=== PATIENT | female | born 2000 | race Caucasian/White ===

== ENCOUNTER 2020-03-24 18:23 | Observation (INO) | payer OTHER ==
[2020-03-24 19:01] LABS: AMORPHOUS SEDIMENT,URINE TRACE /HPF; APPEARANCE,URINE SLIGHTLY-CLOUDY; BILIRUBIN,URINE NEGATIVE (NEGATIVE); COLOR,URINE YELLOW; GLUCOSE, URINE NEGATIVE (NEGATIVE); KETONES,URINE NEGATIVE (NEGATIVE); LEUKOCYTE ESTERASE,URINE NEGATIVE (NEGATIVE); NITRITE,URINE NEGATIVE (NEGATIVE); PROTEIN,URINE NEGATIVE (NEGATIVE); URINE SPECIFIC GRAVITY 1.013; UROBILINOGEN,URINE NEGATIVE mg/dL (<2.0)
[2020-03-24 19:17] LABS: URINE AMPHETAMINES SCREEN NEGATIVE; URINE BARBITURATES SCREEN NEGATIVE; URINE BENZODIAZEPINES SCREEN NEGATIVE; URINE COCAINE SCREEN NEGATIVE; URINE MARIJUANA (THC) SCREEN NEGATIVE; URINE METHADONE SCREEN NEGATIVE; URINE PHENCYCLIDINE SCREEN NEGATIVE
[2020-03-24] MEDS ORDERED: CEFTRIAXONE INJ 1000 MG VIAL IV ONE (19:25)
[2020-03-24] MEDS ORDERED: ACETAMINOPHEN 325 MG TABLET ONE (19:35)
[2020-03-24] MEDS ORDERED: CEFTRIAXONE 1 GM/D5W RTU 1 GM/50 ML RTUPB IV ONE ×2 (19:36→20:00)
[2020-03-24] MEDS ORDERED: ACETAMINOPHEN 325 MG TABLET PO ONE (20:00)
[2020-03-24] MEDS ORDERED: RINGERS SOLUTION,LACTATED 1,000 ML IV ONE (20:00)
[2020-03-24] MEDS ORDERED: PROMETHAZINE HCL INJ 25 MG/1 ML VIAL ONE (21:32)
[2020-03-24 22:00] LABS: ABSOLUTE EOSINOPHILS # (AUTO) 0.3 10^3/uL (0.0-0.6); ABSOLUTE LYMPHOCYTES (AUTO) 2.6 10^3/uL (0.5-4.7); ABSOLUTE NEUT (AUTO) 11.7 10^3/uL (1.7-8.2); BASOPHILS % (AUTO) 0.1 % (0-2); EOSINOPHILS % (AUTO) 1.6 % (0-6); HEMATOCRIT 30.5 % (36.0-47.0); HEMOGLOBIN 10.7 g/dL (12.0-15.5); LYMPHOCYTES % (AUTO) 16.6 % (13-45); MEAN CORPUSCULAR HEMOGLOBIN 30.2 pg (27.0-33.4); MEAN CORPUSCULAR HGB CONC 34.9 g/dL (32.0-36.0); MEAN CORPUSCULAR VOLUME 86 fl (80-97); MONOCYTES % (AUTO) 6.5 % (3-13); PLATELET COUNT 213 10^3/uL (150-450); RED BLOOD COUNT 3.54 10^6/uL (3.72-5.28); RED CELL DISTRIBUTION WIDTH 13.3 % (11.5-14.0); SEGMENTED NEUTROPHILS % (AUTO) 75.2 % (42-78); TOTAL CELLS COUNTED % (AUTO) 100 %; WHITE BLOOD COUNT 15.6 10^3/uL (4.0-10.5)
[2020-03-24] MEDS ORDERED: PROMETHAZINE HCL INJ 25 MG/1 ML VIAL IV ONE (22:00)
--- NOTE | 2020-03-24 22:36 | Admission Physical ---
Datetime Report Generated by CPN: 03/24/2020 22:36 CURRENT ADMISSION Chief Complaint: Other Chief Complaint Other: Pyelonephritis Indication for Induction: Not Applicable Admit Impression : Obstetrical Complication; Medical Complication Admit Plan: Admit to Unit; Observation/Evaluation ALLERGIES Medication Allergies: No Known Allergies (03/24/2020) OBSTETRICAL HISTORY EDC: 07/20/2020 00:00 : 1 Para: 0 PHYSICAL EXAM General: Normal HEENT: Normal Neurologic: Normal Thyroid: Normal Heart: Normal Lungs: Normal Breast: Deferred Back: Abnormal Abdomen: Normal Genitourinary Exam: Normal Extremities: Normal DTRs: Normal Pelvic Type: Adequate Physical Exam Comments: right cva tenderness MEMBRANES Pooling: Negative Membranes: Intact FETUS A EGA: 23.1 FHR- Baseline: 140 Admit Comment: Will admit for iv antibiotics and fluids. INFORMED CONSENT Signature: with User ID: [email or web address]
[2020-03-24] MEDS ORDERED: ONDANSETRON 4 MG TAB.RAPDIS ONE (23:08)
[2020-03-24] MEDS: RINGERS SOLUTION,LACTATED 1,000 ML IV PRN (23:09)
[2020-03-24] MEDS: ONDANSETRON 4 MG TAB.RAPDIS PO PRN (23:09)
[2020-03-25] MEDS: PROMETHAZINE HCL INJ 25 MG/1 ML VIAL IV PRN ×2 (04:05→17:25)
[2020-03-25] MEDS: ACETAMINOPHEN 325 MG TABLET PO PRN ×3 (04:12→17:21)
[2020-03-25] MEDS: RINGERS SOLUTION,LACTATED 1,000 ML IV PRN ×3 (05:36→23:04)
[2020-03-25] MEDS: CEFAZOLIN 1 GM/D5W RTU 1 GM/50 ML RTUPB IV SCH ×3 (05:37→23:03)
[2020-03-25] MEDS: ONDANSETRON 4 MG TAB.RAPDIS PO PRN (09:22)
--- NOTE | 2020-03-25 10:26 | PDOC PROGRESS REPORT ---
Subjective Date:: 03/25/20 Subjective:: Doing well. No fever/chills. Still with right back palin in flank area. Has warm heat pack in place now which is helping the pain. No N/v or shortness of breath. She reports good FM Reason For Visit: , PYELONEPHRITIS Physical Exam - Physical Exam Vital Signs: Temp Pulse Resp BP Pulse Ox 99.0 F 94 16 121/68 100 03/25/20 08:09 03/25/20 08:09 03/25/20 08:09 03/25/20 08:09 03/25/20 08:09 Intake & Output 03/24/20 03/25/20 03/26/20 06:59 06:59 06:59 Intake Total 856 Balance 856 Weight 94 kg General appearance: PRESENT: no acute distress, cooperative Mouth exam: PRESENT: moist Respiratory exam: PRESENT: clear to auscultation lazaro, unlabored Cardiovascular exam: PRESENT: RRR, +S1, +S2 Vascular exam: PRESENT: normal capillary refill GI/Abdominal exam: PRESENT: normal bowel sounds - Right CVA tenderness, soft Extremities exam: PRESENT: full ROM. ABSENT: calf tenderness, clubbing, pedal edema Psychiatric exam: PRESENT: appropriate affect, normal mood. ABSENT: homicidal ideation, suicidal ideation Skin exam: PRESENT: dry, intact, warm. ABSENT: cyanosis, rash Result Laboratory Results: 03/24/20 21:41 03/24/20 03/24/20 18:30 21:41 WBC 15.6 H RBC 3.54 L Hgb 10.7 L Hct 30.5 L MCV 86 MCH 30.2 MCHC 34.9 RDW 13.3 Plt Count 213 Seg Neutrophils % 75.2 Urine Color YELLOW Urine Appearance SLIGHTLY-CLOUDY Urine pH 6.0 Ur Specific [place] 1.013 Urine Protein NEGATIVE Urine Glucose (UA) NEGATIVE Urine Ketones NEGATIVE Urine Blood LARGE H Urine Nitrite NEGATIVE Ur Leukocyte Esterase NEGATIVE Urine RBC (Auto) >182 Assessment & Plan - Diagnosis (1) Pyelonephritis Is this a current diagnosis for this admission?: Yes - Time Time Spent with patient: Less than 15 minutes Medications reviewed and adjusted accordingly: Yes Anticipated discharge: Home Anticipated DC Timeframe: within 48 hours Disposition: Stable but still CVA tenderness on right during assessment. - Plan Summary Plan Summary: 19 yo G1 at 23 weeks EGA with right pyelonephritis -VSS, afebrile -Regular diet, tolerating well -Exam positive for Right CVA tenderness -CBC on admit with WBC 15.6, CBC ordered for am -UC with no growth after 24 hours -FHT daily. Reassuring today -Continue IV antibiotics and IV hydration -WIll continue current therapy until no CVA tenderness, no fevers and UC returns. D/c with patient. All questions answered
[2020-03-26 06:03] VITALS: BP 100/65
[2020-03-26] MEDS: CEFAZOLIN 1 GM/D5W RTU 1 GM/50 ML RTUPB IV SCH (06:23)
[2020-03-26 07:41] LABS: HEMATOCRIT 28.2 % (36.0-47.0); HEMOGLOBIN 9.7 g/dL (12.0-15.5); MEAN CORPUSCULAR HEMOGLOBIN 30.1 pg (27.0-33.4); MEAN CORPUSCULAR HGB CONC 34.4 g/dL (32.0-36.0); MEAN CORPUSCULAR VOLUME 87 fl (80-97); PLATELET COUNT 150 10^3/uL (150-450); RED BLOOD COUNT 3.24 10^6/uL (3.72-5.28); RED CELL DISTRIBUTION WIDTH 13.4 % (11.5-14.0); WHITE BLOOD COUNT 8.5 10^3/uL (4.0-10.5)
[2020-03-26] MEDS: RINGERS SOLUTION,LACTATED 1,000 ML IV PRN (09:03)
--- NOTE | 2020-04-05 12:13 | PDOC DISCHARGE SUMMARY ---
Impression - Admit/DC Date/PCP Admission Date/Primary Care Provider: 03/24/20 22:44 Discharge Date: 03/26/20 - Discharge Diagnosis (1) Pyelonephritis Is this a current diagnosis for this admission?: Yes (2) Is this a current diagnosis for this admission?: Yes - Assessment Summary: has had > 48 hours of antibiotics with good resolution of pyelo symptoms. No nausea or vomiting since yesterday. Now tolerating a regular diet and not requiring pain medication. Fever resolved and pain resolved - Additional Information Resuscitation Status: Full Code Referrals: [facility] [Provider Group] (Follow up with A as needed.) Prescriptions: Cephalexin Monohydrate [Keflex 500 mg Capsule] 500 mg PO QID #20 capsule Home Medications: No122/Iron/Folic Acid [ Multi Tablet] 1 tab PO DAILY 03/24/20 Cephalexin Monohydrate [Keflex 500 mg Capsule] 500 mg PO QID #20 capsule 03/26/20 History of Present Illiness History of Present Illness: XIN LEMOS is a 19 year old female Physical Exam - Physical Exam Vital Signs: Temp Pulse Resp BP Pulse Ox 97.5 F 93 18 100/65 98 03/26/20 04:00 03/26/20 04:00 03/26/20 04:00 03/26/20 04:00 03/26/20 04:00 Intake & Output 03/25/20 03/26/20 03/27/20 06:59 06:59 06:59 Intake Total 856 3590 1000 Balance 856 3590 1000 Weight 94 kg 91.1 kg Results Laboratory Results: WBC 8.5 10^3/uL (4.0-10.5) 03/26/20 07:28 RBC 3.24 10^6/uL (3.72-5.28) L 03/26/20 07:28 Hgb 9.7 g/dL (12.0-15.5) L 03/26/20 07:28 Hct 28.2 % (36.0-47.0) L 03/26/20 07:28 MCV 87 fl (80-97) 03/26/20 07:28 MCH 30.1 pg (27.0-33.4) 03/26/20 07:28 MCHC 34.4 g/dL (32.0-36.0) 03/26/20 07:28 RDW 13.4 % (11.5-14.0) 03/26/20 07:28 Plt Count 150 10^3/uL (150-450) 03/26/20 07:28 Lymph % (Auto) 16.6 % (13-45) 03/24/20 21:41 [place] % (Auto) 6.5 % (3-13) 03/24/20 21:41 Eos % (Auto) 1.6 % (0-6) 03/24/20 21:41 Baso % (Auto) 0.1 % (0-2) 03/24/20 21:41 Absolute Neuts (auto) 11.7 10^3/uL (1.7-8.2) H 03/24/20 21:41 Absolute Lymphs (auto) 2.6 10^3/uL (0.5-4.7) 03/24/20 21:41 Absolute Monos (auto) 1.0 10^3/uL (0.1-1.4) 03/24/20 21:41 Absolute Eos (auto) 0.3 10^3/uL (0.0-0.6) 03/24/20 21:41 Absolute Basos (auto) 0.0 10^3/uL (0.0-0.2) 03/24/20 21:41 Seg Neutrophils % 75.2 % (42-78) 03/24/20 21:41 Urine Color YELLOW 03/24/20 18:30 Urine Appearance SLIGHTLY-CLOUDY 03/24/20 18:30 Urine pH 6.0 (5.0-9.0) 03/24/20 18:30 Ur Specific [place] 1.013 03/24/20 18:30 Urine Protein NEGATIVE mg/dL (NEGATIVE) 03/24/20 18:30 Urine Glucose (UA) NEGATIVE mg/dL (NEGATIVE) 03/24/20 18:30 Urine Ketones NEGATIVE mg/dL (NEGATIVE) 03/24/20 18:30 Urine Blood LARGE (NEGATIVE) H 03/24/20 18:30 Urine Nitrite NEGATIVE (NEGATIVE) 03/24/20 18:30 Urine Bilirubin NEGATIVE (NEGATIVE) 03/24/20 18:30 Urine Urobilinogen NEGATIVE mg/dL (<2.0) 03/24/20 18:30 Ur Leukocyte Esterase NEGATIVE (NEGATIVE) 03/24/20 18:30 Urine RBC (Auto) >182 /HPF 03/24/20 18:30 Urine Bacteria (Auto) 3+ /HPF 03/24/20 18:30 Squamous Epi Cells Auto 2 /HPF 03/24/20 18:30 Amorphous Sediment Auto TRACE /HPF 03/24/20 18:30 Urine Mucus (Auto) RARE /LPF 03/24/20 18:30 Urine Ascorbic Acid NEGATIVE (NEGATIVE) 03/24/20 18:30 Urine Opiates Screen NEGATIVE 03/24/20 18:30 Urine Methadone Screen NEGATIVE 03/24/20 18:30 Ur Barbiturates Screen NEGATIVE 03/24/20 18:30 Ur Phencyclidine Scrn NEGATIVE 03/24/20 18:30 Ur Amphetamines Screen NEGATIVE 03/24/20 18:30 U Benzodiazepines Scrn NEGATIVE 03/24/20 18:30 Urine Cocaine Screen NEGATIVE 03/24/20 18:30 U Marijuana (THC) Screen NEGATIVE 03/24/20 18:30 Stroke Is this a Stroke Patient?: No Acute Heart Failure Is this a Heart Failure Patient?: No
== END 2020-03-26 12:58 | disposition home or self-care (01) ==
LOC: LC 18:23 → LR 22:44 → 2S 03-25 00:39
PROVIDERS: ADMIT Obstetrics & Gynecology; ATTEND Obstetrics & Gynecology
DX: O23.02 Infections of kidney in pregnancy, second trimester (principal); O99.512 Diseases of the respiratory system complicating pregnancy, second trimester; J45.909 Unspecified asthma, uncomplicated; Z3A.23 23 weeks gestation of pregnancy; Z79.899 Other long term (current) drug therapy
CPT/HCPCS: 36415 ×2; 87086; 85025; 85027; 81001; 80307; 59899; G0378 ×3; G0379; J0690 ×2; S0119 ×2; J2550 ×2; J7120 ×2; J0696